=== PATIENT | male | born 1980 | race Caucasian/White ===

== ENCOUNTER 2018-08-20 02:26 | Inpatient (IN) | payer MEDICARE, OTHER ==
[~2018-08-20] VITALS: Ht 172.7 cm; Wt 68.6 kg
[~2018-08-20 02:26] MED LIST: CLON2TAB; DULO20CA; OXYC20TA32; OXYCONTIN; [UNRECOGNIZED DRUG - OTHER]
[2018-08-20] MEDS ORDERED: VANCOMYCIN 1GM/250ML 250 ML IV ONE (05:00)
[2018-08-20] MEDS ORDERED: PIPERACILLIN-TAZOB 3.375GM 100 ML IV ONE (05:00)
[2018-08-20 05:23] LABS: Eosinophils # (auto) 0.4 uL; Lymphocytes # (auto) 1.8 uL; Platelet Count (auto) 477 10^3/uL (140-450)
[2018-08-20 05:25] LABS: Basophils # (auto) 0.1 uL; Basophils % (auto) 0.9 % (0.0-2.0); Eosinophils % (auto) 3.8 % (0.0-7.0); Hematocrit 31.3 % (41.0-53.0); Hemoglobin 10.5 g/dL (13.5-17.5); Lymphocytes % (auto) 17.4 % (10.0-50.0); Mean Corpuscular Hemoglobin 26.5 pg (28.0-32.0); Mean Corpuscular Hgb Conc. 33.5 g/dL (32.0-36.0); Mean Corpuscular Volume 79.1 fL (80.0-100.0); Monocytes # (auto) 1.1 uL; Monocytes % (auto) 10.8 % (0.0-12.0); Neutrophils # (auto) 6.9 uL; Neutrophils % (auto) 67.1 % (37.0-80.0); Red Blood Cells 3.95 10^6/uL (4.5-5.90); Red Cell Distribution Width 16.7 % (11.8-14.3); White Blood Cell 10.3 10^3/uL (4.4-10.8)
[2018-08-20 05:41] LABS: Albumin 2.8 g/dL (3.4-5.0); Calcium 8.5 mg/dL (8.5-10.1); Potassium 4.1 mmol/L (3.5-5.1)
[2018-08-20 05:44] LABS: Bilirubin, Total 0.4 mg/dL (0.2-1.0); Total Protein 8.6 g/dL (6.4-8.2)
[2018-08-20] MEDS ORDERED: ONDANSETRON HCL 4 MG/2 ML VIAL IV PRN (06:00)
[2018-08-20] MEDS ORDERED: VANCOMYCIN PER PHARMACY 0 MG IV SCH (06:00)
[2018-08-20] MEDS ORDERED: ACETAMINOPHEN 500 MG TAB PO PRN (06:00)
[2018-08-20 06:33] LABS: Urine WBC None Seen /hpf (0 - 3)
[2018-08-20] MEDS: SODIUM CHLORIDE 0.9% 1,000 ML IV SCH ×2 (06:46→16:00)
[2018-08-20 07:06] LABS: Alcohol, Urine < 3.0 mg/dL (0-5); Amphetamine Screen, Urine POSITIVE (NEGATIVE); Barbiturate Scree,Urine NEGATIVE (NEGATIVE); Benzodiazephine Screen, Urine NEGATIVE (NEGATIVE); Cannabinoid Screen, Urine NEGATIVE (NEGATIVE); Cocaine Screen, Urine NEGATIVE (NEGATIVE); Opiate Scree,Urine POSITIVE (NEGATIVE); Phencyclidine Screen, Urine NEGATIVE (NEGATIVE)
[2018-08-20 07:09] LABS: Urine Bacteria NONE SEEN /hpf (None Seen); Urine Blood Negative /uL (Negative); Urine Specific Gravity 1.004 (1.001-1.035)
[2018-08-20] MEDS: VANCOMYCIN 1GM/250ML 250 ML IV SCH ×2 (09:04→20:51)
[2018-08-20 09:31] LABS: INR 1.05 (0.9-1.15); Partial Thromboplastin Time 28.7 sec (23.78-33.04); Prothrombin Time 11.2 sec (9.27-12.13)
[2018-08-20] MEDS ORDERED: PIPERACILLIN-TAZOB 3.375GM 100 ML IV SCH (11:00)
--- NOTE | 2018-08-20 11:54 | NUR ---
MS admit from ER LAURIEEVERARDO admitted to tele/MS after SBAR received. Patient oriented to Dora Meek primary RN, unit, room, bed, and unit policies regarding patient care and visiting hours. Patient weighed by bed scale and encouraged to call if they need something. All questions and concerns addressed, patient verbalized understanding. Patient's belongings list filled out. Patient's personal taser taken from bedside. locomotive supervisor called to take item to hospital safe. Instructed patient on NPO status per Md's orders. Patient verbalized displeasure and understanding. Fall precautions in place with bed in low position with call light within reach. Patient refused to wear fall prevention socks. Educated patient on fall prevention. Patient verbalized understanding. Patient has multiple scabs throughout his left and right arms along with his left and right legs and ankles. Patient states "my body isn't absorbing the heroin or something any more." Educated patient on infection prevention. Patient verbalized understanding. Will continue to monitor q1hr & PRN.
[2018-08-20 12:43] VITALS: BP 122/67
--- NOTE | 2018-08-20 12:52 | NUR ---
Paged Paged Dr. Rowell to notify MD that patient is a current heroine user and has no medications for withdrawal. Will wait for orders.
--- NOTE | 2018-08-20 12:55 | NUR ---
Updated MD Updated Dr. Rowell of patient's substance abuse status. MD verbalized understanding. MD to place orders.
[2018-08-20] MEDS ORDERED: METHADONE HCL 10 MG TAB PO ONE (13:00)
--- NOTE | 2018-08-20 13:33 | NUR ---
Taser given to house builder Mila, house builder.
--- NOTE | 2018-08-20 15:35 | NUR ---
AMA signed and placed in the chart for patient to smoke patient educated on smoking cessation and fall precautions. Patient verbalized understanding.
[2018-08-20] MEDS: cefTRIAXone 1GM/50ML D5W 50 ML IV SCH (16:23)
[2018-08-20] MEDS: MORPHINE SULFATE 4 MG/ML SYR/VIAL IV PRN ×2 (16:24→20:50)
[2018-08-20 16:37] VITALS: BP 125/71
--- NOTE | 2018-08-20 18:46 | NUR ---
End of shift patient resting in bed with even and unlabored respirations on RA. Fall precautions in place with call light within reach. Patient refusing fall prevention socks at this time. Education has been provided to patient and patient verbalized understanding. Instructed patient on NPO status per Dr. Cannon's orders. Patient verbalized understanding. Will endorse care to RN.
--- NOTE | 2018-08-20 19:20 | NUR ---
Opening Shift Note Assumed care of patient, awake and alert x4. No S/S of distress/SOB or pain noted. Instructed on plan of care and to call for assistance as needed. Bed is locked in lowest position, side rails x 2 are up, and call light is within reach.
[2018-08-20 22:00] VITALS: BP 118/68
[2018-08-20] MEDS: LORazepam 0.5 MG TAB PO PRN (22:50)
[2018-08-21] MEDS: SODIUM CHLORIDE 0.9% 1,000 ML IV SCH ×3 (02:00→22:46)
[2018-08-21] MEDS: MORPHINE SULFATE 4 MG/ML SYR/VIAL IV PRN ×3 (02:12→11:39)
--- NOTE | 2018-08-21 02:33 | NUR ---
PATIENT OFF UNIT Patient notified me that he is going outside to smoke. Patient has a signed AMA placed in hard chart. Patient educated on smoking cessation and fall precautions. Patient verbalized understanding. Informed patient that he has 30 minutes to get up to the unit. Patient verbalized understanding.
--- NOTE | 2018-08-21 02:40 | NUR ---
PATIENT NOTIFIED ME THAT HE IS NO LONGER GOING OUTSIDE TO SMOKE AT THIS TIME Patient notified me that he is no longer leaving the unit to go outside to smoke at this time. Patient states he will go at a later time. Instructed patient to notify me when he leaves the unit. Patient verbalized understanding.
[2018-08-21 05:23] VITALS: BP 123/80
[2018-08-21] MEDS: HYDROcodone-ACET 5/325MG TAB PO PRN (05:34)
[2018-08-21 06:24] LABS: Basophils # (auto) 0.1 uL; Eosinophils # (auto) 0.3 uL; Eosinophils % (auto) 3.3 % (0.0-7.0); Lymphocytes # (auto) 1.8 uL; Monocytes # (auto) 0.7 uL
[2018-08-21 06:26] LABS: Basophils % (auto) 0.9 % (0.0-2.0); Hematocrit 34.5 % (41.0-53.0); Hemoglobin 11.3 g/dL (13.5-17.5); Lymphocytes % (auto) 20.5 % (10.0-50.0); Mean Corpuscular Hgb Conc. 32.7 g/dL (32.0-36.0); Mean Corpuscular Volume 79.4 fL (80.0-100.0); Monocytes % (auto) 7.8 % (0.0-12.0); Neutrophils % (auto) 67.5 % (37.0-80.0); Platelet Count (auto) 508 10^3/uL (140-450); Red Blood Cells 4.34 10^6/uL (4.5-5.90); Red Cell Distribution Width 17.1 % (11.8-14.3); White Blood Cell 8.9 10^3/uL (4.4-10.8)
[2018-08-21 06:32] LABS: Calcium 8.5 mg/dL (8.5-10.1); Potassium 3.9 mmol/L (3.5-5.1)
[2018-08-21 06:34] LABS: BUN/Creatinine Ratio 10.4
--- NOTE | 2018-08-21 07:50 | NUR ---
Opening Shift Note Assumed care of patient, asleep but responds to name. No S/S of distress/SOB or pain. Instructed on POC and to call for assist PRN, will continue to monitor for changes Q1hr and PRN.
--- NOTE | 2018-08-21 08:14 | NUR ---
CLOSING SHIFT NOTE Patient care endorsed to Kimberlee BANUELOS.
[2018-08-21 08:37] VITALS: BP 116/67
--- NOTE | 2018-08-21 09:10 | NUR ---
Patient in bed still very drowsy.
[2018-08-21] MEDS: cefTRIAXone 1GM/50ML D5W 50 ML IV SCH (09:12)
[2018-08-21] MEDS: VANCOMYCIN 1GM/250ML 250 ML IV SCH ×2 (10:11→22:46)
[2018-08-21] MEDS: METHADONE HCL 10 MG TAB PO SCH (10:12)
[2018-08-21 13:00] VITALS: BP 121/68
--- NOTE | 2018-08-21 14:40 | NUR ---
Patient brought to pre-op for procedure. Consent forms not yet signed.
[2018-08-21] MEDS ORDERED: ceFAZolin 1GM VL ONE (15:13)
[2018-08-21 15:15] LABS: Alanine Aminotransferase 201 U/L (16-61); Aspartate Aminotransferase 83 U/L (15-37)
[2018-08-21] MEDS ORDERED: MIDAZOLAM HCL 1MG/1ML-2 ML VIAL ONE (15:21)
[2018-08-21] MEDS ORDERED: fentaNYL CITRATE 100 MCG/2 ML VL ONE (15:21)
[2018-08-21] MEDS ORDERED: PROPOFOL 10 MG/ML 20 ML IV ONE (15:46)
[2018-08-21] MEDS ORDERED: ePHEDrine SULFATE 50 MG/ML AMP IV PRN (16:00)
[2018-08-21] MEDS ORDERED: hydrALAZINE HCL 20 MG/ML VL IV PRN (16:00)
[2018-08-21] MEDS ORDERED: HYDROmorphone HCL 2 MG/ML VL IV PRN (16:00)
[2018-08-21] MEDS ORDERED: ONDANSETRON HCL 4 MG/2 ML VIAL IV ONE (16:00)
--- NOTE | 2018-08-21 16:29 | NUR ---
assessment Patient is a 38 year old male who is alert and oriented. Prior to admission patient lived home with family and functioned independently. Patient informed me he is able to care for his own ADLs. Per patient he will return home to his prior living arrangements post discharge and family will transport him home. Per consult substance abuse- heroin is drug of choice. Patient informed me he does not have a problem with using Heroin. I have offered patient resources for his addiction and he refused. I informed patient he has a right to speak to a social problems specialist regarding all care. I informed patient he has a right to participate in any and all discharge planning. Patient is aware of visiting hours on the hospital floor. I informed patient he has a right to privacy. Patient does not have a POA and advanced directive. I have offered patient information on POA and advanced directives. I informed the patient the advantages and benefits of having an Advanced Directive. Patient verbalized understanding and agreed to discharge plan. Addendum: 08/21/18 at 1700 by Julia ARCEO Amended: Links added.
--- NOTE | 2018-08-21 16:30 | NUR ---
Patient returned to unit after having incision and drainage to abscess on right arm done. Dressing intact and drain in place with minimal amount of sanguineous fluid. Patient still very drowsy. Call light within reach and bed alarm in place. Patient encouraged to call before getting out of bed.
[2018-08-21 17:00] VITALS: BP 120/59
--- NOTE | 2018-08-21 17:30 | NUR ---
WOUND CARE NOTE: Wound care consult received from nursing. Patient is a 38 yo male admitted for Right upper arm abscess. Patient with history of IV heroine use. Patient is s/p I&D of right arm abscess with Dr aCnnon this afternoon. Discussed with bedside RN, Kimberlee. Patient with post op dressing with SCOTTY drain to right arm C/D/I. No photos taken on admission of abscess. Patient seen by wound care nurse. Patient is very drowsy, wakes when name is called but cannot keep eyes open and takes long to respond. RN states that patient has been like this since return from OR. Noted patient to have multiple multiple scabs over bilateral arms. None are opened and draining. Patient unable to state how long he's had wounds. Appear to be from IV drug use. RECOMMENDATIONS: Nursing to follow wound care per Dr Cannon's orders; No need for wound care team to follow at this time.
--- NOTE | 2018-08-21 19:45 | NUR ---
Opening Shift Note Assumed care of patient, patient is drowse but wakes up to name and is oriented x 3,easily reoriented to situation. No S/S of distress/SOB noted. Dressing has some serosanguineous fluid on it but SCOTTY drain is draining serosanguineous fluid to suction. Bed is in lowest locked position with bed rails up x2 and call light is within reach of the patient. Instructed on POC and to call for assist PRN.
[2018-08-21 21:00] VITALS: BP 123/61
--- NOTE | 2018-08-21 23:30 | NUR ---
Hospitalist paged: Patient was demanding to have something to eat but patient was still NPO for surgery. Patient already had surgery for right arm abscess drainage. Hospitalist paged to change diet order.
--- NOTE | 2018-08-22 | NUR ---
Dressing on right arm changed and cleaned, irrigated SCOTTY with 50 mls per MD orders: Patient tolerated well. No S/S of distress SOB noted at this time.
--- NOTE | 2018-08-22 00:29 | NUR ---
Hospitalist called back regarding diet: Patients diet changed from NPO to regular diet.
[2018-08-22 05:00] VITALS: BP 127/76
[2018-08-22] MEDS: HYDROcodone-ACET 5/325MG TAB PO PRN (05:05)
--- NOTE | 2018-08-22 05:05 | NUR ---
IV in left external jugular infiltrated: Patients IV in left external jugular infiltrated. Patient complained of pain and swelling in neck and demanded IV fluid be turned off. IV was turned off and educated patient about the need to start a new IV to give medications. Patient verbalized understanding but was agitated about the need to start a new one.
[2018-08-22] MEDS: LORazepam 0.5 MG TAB PO PRN (05:11)
--- NOTE | 2018-08-22 05:15 | NUR ---
Patient refused new peripheral IV start: Patient refused IV start on the peripheral limbs and stated "I want it on my neck. I want nothing on my arms." Patient refused to have IV started on hands or arms at this time. Educated patient and patient still refused IV. Will endorse to day shift nurse.
--- NOTE | 2018-08-22 07:02 | NUR ---
55 ml of serosanguineous fluid drained from SCOTTY drain. Dressing is dry and intact. No s/s of distress SOB noted.
--- NOTE | 2018-08-22 07:03 | NUR ---
Request for midline placement placed: Patient is a hard stick and refuses to get iv in arms and hands.
[2018-08-22] MEDS: SODIUM CHLORIDE 0.9% 1,000 ML IV SCH (08:00)
--- NOTE | 2018-08-22 08:00 | NUR ---
Opening Shift Note Assumed care of patient, asleep but responds to name. Patient appears to be very drowsy, responds to name but unable to complete statement before going back to sleep. No S/S of distress/SOB or pain noted. Instructed on POC and to call for assist PRN, will continue to monitor for changes Q1hr and PRN.
[2018-08-22 08:35] VITALS: BP 136/78
[2018-08-22] MEDS: cefTRIAXone 1GM/50ML D5W 50 ML IV SCH (09:00)
[2018-08-22] MEDS: VANCOMYCIN 1GM/250ML 250 ML IV SCH (09:00)
--- NOTE | 2018-08-22 09:00 | NUR ---
IV medications Patient has no IV at this time awaiting EJ placement.
--- NOTE | 2018-08-22 09:30 | NUR ---
Attempt to change bed linen and patient refused. Does not want drain to be irrigated at this time.
[2018-08-22] MEDS: METHADONE HCL 10 MG TAB PO SCH (09:33)
[2018-08-22 09:50] LABS: Hepatitis B Surface Antibody Negative
--- NOTE | 2018-08-22 10:57 | NUR ---
ATTEMPTED TO START IV ACCESS FOR PATIENT PER RN REQUEST. PT REFUSED MIDLINE "BECAUSE ITS ON HIS ARM". AN EJ WAS REQUESTED BY PATIENT TO PRIMARY RN. PT STATES "IM NOT ON THE MOOD FOR THE IV ON MY NECK RIGHT NOW". REQUESTING FOR ME TO LEAVE THE ROOM AND COME BACK LATER TO SEE IF HE IS IN THE MOOD. PRIMARY CARE RN AND CHARGE NURSE MARIE NOTIFIED
[2018-08-22 11:21] LABS: Hepatitis B Surface Antigen Negative (Negative); Hepatitis C Antibody Positive (Negative)
[2018-08-22] MEDS ORDERED: SULFAMETHOX W/TRIMETH(800/160MG) DS TAB PO ONE (11:45)
--- NOTE | 2018-08-22 12:33 | NUR ---
patient refused 1300 vitals
--- NOTE | 2018-08-22 13:22 | NUR ---
re-assessment Patient is now discharged. Patient has a consult for wound care. Patient has been given a list of medicare providers. Per patient he has no preference on who provides service. order given to Della casework supervisor to satisfy the order. Addendum: 08/22/18 at 1324 by Julia ARCEO Amended: Links added.
--- NOTE | 2018-08-22 13:23 | NUR ---
HH ORDER FAXED TO [place]
--- NOTE | 2018-08-22 16:47 | NUR ---
Discharge Awaiting on information regarding accepting home health agency to finalize discharge.
--- NOTE | 2018-08-22 17:50 | NUR ---
Discharge pending home health. call taker manager rn case paged.
--- NOTE | 2018-08-22 18:19 | NUR ---
PATIENT REFUSED 1700 VITALS
--- NOTE | 2018-08-22 18:37 | NUR ---
Home Health Received call from [place] manager of case. She will follow up with [facility] health agency to confirm whether they accepted the patient.
--- NOTE | 2018-08-22 18:40 | NUR ---
Went to confirm with patient that he is accepted by [facility] for dressing care. Patient still very drowsy, opens eyes but not verbalizing response at this time.
--- NOTE | 2018-08-22 18:40 | NUR ---
I spoke with Qiana at [facility], she said they will accept this patient, and that they will contact patient in the morning to set up the visit. I relayed this information to nurse Re as well as giving her the phone number for [facility] to give to the patient.
--- NOTE | 2018-08-22 20:20 | NUR ---
Discharge Patient discharged at this time with personal belongings with at the bedside. Patient provided with [facility] number #[phone] and instructed to call and follow up with them in the morning if they do not receive a call from them. Right arm wrapped with gauze and secured with tape. No S/S of distress noted and patient tolerated well. Provided patient with education packet and prescription to treat MRSA infection. Patient verbalized understanding. gate services supervisor called to retrieve taser locked away in safe for patient at discharge, Security called to escort patient out with taser after paperwork has been signed. Patient DCed with all IVs removed.
[2018-08-22] MEDS ORDERED: SULFAMETHOX W/TRIMETH(800/160MG) DS TAB PO SCH (22:00)
== END 2018-08-22 20:20 | disposition home health service (06) | DRG 602 ==
LOC: ER 02:29 → OVERFLOW 06:02 → EAST 12:01
PROVIDERS: ADMIT Nurse Practitioner Family; ATTEND Internal Medicine
PROC: 0X980ZZ Drainage of Right Upper Arm, Open Approach (ICD-10-PCS; principal; 2018-08-21 15:20)
DX: L02.413 Cutaneous abscess of right upper limb (principal); E43 Unspecified severe protein-calorie malnutrition; B95.62 Methicillin resistant Staphylococcus aureus infection as the cause of diseases classified elsewhere; B19.20 Unspecified viral hepatitis C without hepatic coma; F11.10 Opioid abuse, uncomplicated; F17.210 Nicotine dependence, cigarettes, uncomplicated; S51.802A Unspecified open wound of left forearm, initial encounter; S51.801A Unspecified open wound of right forearm, initial encounter; X58.XXXA Exposure to other specified factors, initial encounter; Y93.89 Activity, other specified; Y92.89 Other specified places as the place of occurrence of the external cause; Y99.8 Other external cause status; F15.10 Other stimulant abuse, uncomplicated; G89.29 Other chronic pain; M54.9 Dorsalgia, unspecified; Z68.23 Body mass index [BMI] 23.0-23.9, adult
CPT/HCPCS: 36415; 73200; 80048; 80053; 80202; 80307; 81001; 83605; 84450; 84460; 85025; 85610; 85730; 86706; 86803; 87040; 87070; 87075; 87077; 87186; 87205; 87340; 96365; 96366; 96367; A6257; G0378; J0690; J0696; J2250; J2543; J2704

== ENCOUNTER 2019-11-06 00:51 | Inpatient (IN) | payer SELFPAY ==
[~2019-11-06] VITALS: Ht 172.7 cm; Wt 63.0 kg
[2019-11-06] MEDS ORDERED: PIPERACILLIN-TAZOB 3.375GM 100 ML IV ONE (01:15)
[2019-11-06] MEDS ORDERED: SODIUM CHLORIDE 0.9% 1,000 ML IV ONE (01:15)
[2019-11-06] MEDS ORDERED: CLINDAMYCIN 900MG IV 50 ML IV ONE (01:15)
[2019-11-06 01:49] LABS: Basophils # (auto) 0.1 10 ^3/uL (0-0.2); Basophils % (auto) 1.1 % (0.0-2.0); Eosinophils # (auto) 0.4 10 ^3/uL (0-0.8); Eosinophils % (auto) 4.8 % (0.0-7.0); Hematocrit 34.3 % (41.0-53.0); Hemoglobin 11.2 g/dL (13.5-17.5); Lymphocytes % (auto) 23.1 % (10.0-50.0); Mean Corpuscular Hemoglobin 27.1 pg (28.0-32.0); Mean Corpuscular Hgb Conc. 32.7 g/dL (32.0-36.0); Mean Corpuscular Volume 83.1 fL (80.0-100.0); Monocytes # (auto) 0.9 10 ^3/uL (0-1.3); Monocytes % (auto) 10.8 % (0.0-12.0); Neutrophils # (auto) 5.2 10 ^3/uL (1.6-8.6); Neutrophils % (auto) 60.2 % (37.0-80.0); Nucleated Red Blood Cells % 0.1 %; Platelet Count (auto) 308 10^3/uL (140-450); Red Blood Cells 4.12 10^6/uL (4.5-5.90); Red Cell Distribution Width 14.5 % (11.8-14.3); White Blood Cell 8.6 10^3/uL (4.4-10.8)
[2019-11-06] MEDS ORDERED: ONDANSETRON HCL 4 MG/2 ML VIAL IV ONE (02:00)
[2019-11-06] MEDS ORDERED: MORPHINE SULFATE 4 MG/ML SYR/VIAL IV ONE (02:00)
[2019-11-06 02:07] LABS: Albumin 2.7 g/dL (3.4-5.0); Potassium 3.3 mmol/L (3.5-5.1)
[2019-11-06 02:43] LABS: Bilirubin, Total 0.3 mg/dL (0.2-1.0)
[2019-11-06] MEDS ORDERED: ONDANSETRON HCL 4 MG/2 ML VIAL IV PRN (03:30)
[2019-11-06] MEDS ORDERED: TEMAZEPAM 15 MG CAP PO PRN (03:30)
[2019-11-06] MEDS ORDERED: POTASSIUM CHL 20 Meq TABLET PO ONE (03:30)
[2019-11-06] MEDS ORDERED: ACETAMINOPHEN 325 MG TAB PO PRN (03:30)
[2019-11-06] MEDS ORDERED: PIPERACILLIN-TAZOB 3.375GM 100 ML IV SCH (08:00)
[2019-11-06 08:44] VITALS: BP 114/52
[2019-11-06] MEDS ORDERED: CLINDAMYCIN 900MG IV 50 ML IV SCH (10:00)
[2019-11-06] MEDS ORDERED: FAMOTIDINE 20 MG TAB PO SCH (10:00)
[2019-11-06 12:29] VITALS: BP 85/49
== END 2019-11-06 13:45 | disposition left against medical advice (07) | DRG 603 ==
LOC: ER 00:52 → CENTRAL 00:53
PROVIDERS: ADMIT Nurse Practitioner; ATTEND Family Medicine
DX: L03.115 Cellulitis of right lower limb (principal); E44.0 Moderate protein-calorie malnutrition; E87.6 Hypokalemia; F11.90 Opioid use, unspecified, uncomplicated; F17.210 Nicotine dependence, cigarettes, uncomplicated; M72.9 Fibroblastic disorder, unspecified; F12.90 Cannabis use, unspecified, uncomplicated; F15.10 Other stimulant abuse, uncomplicated; F19.10 Other psychoactive substance abuse, uncomplicated; Z53.29 Procedure and treatment not carried out because of patient's decision for other reasons; Z86.19 Personal history of other infectious and parasitic diseases
CPT/HCPCS: 36415; 73700; 80053; 80320; 83605; 85025; 87040; 93971; G0378; J2405; J2543; J3490